=== PATIENT | male | born 1965 | race Caucasian/White ===

== ENCOUNTER 2017-12-02 15:54 | Emergency (ER) | payer OTHER ==
[~2017-12-02] VITALS: Ht 182.9 cm; Wt 134.3 kg
[~2017-12-02 15:54] MED LIST: NORVASC10 MG PO; SIMVASTATIN20 MG PO; SINGULAIR 10 MG10 M1 PO; ZEGERID 20 MG1 EACH PO; ZEGERID 40 MG1 EACH PO; ZINC50 M1 PO
[2017-12-02] MEDS ORDERED: TESTOST (16:06)
[2017-12-02] MEDS ORDERED: [UNRECOGNIZED DRUG - OTHER] (16:06)
[2017-12-02 16:48] LABS: ABSOLUTE EOSINOPHILS 0.2 thou/uL (0.0-0.7); ABSOLUTE LYMPHOCYTES 1.8 thou/uL (0.8-5.3); ABSOLUTE MONOCYTES 0.5 thou/uL (0.0-1.2); ABSOLUTE NEUTROPHILS 4.4 thou/uL (1.6-8.1); BASOPHILS 0.6 %; EOSINOPHILS 2.7 %; HEMATOCRIT 41.6 % (42.0-52.0); HEMOGLOBIN 14.1 gm/dL (14.0-18.0); LYMPHOCYTES 26.2 %; MCH 28.7 pg (26.0-34.0); MCHC 33.8 g/dL (28.0-37.0); MCV 85.1 fL (80.0-100.0); MONOCYTES 7.4 %; MPV 8.6 fl. (7.2-11.1); NUCLEATED RBCS 0 /100WBC; PLATELET COUNT* 210 thou/uL (150-400); POLYS 63.1 %; RBC 4.89 mil/uL (4.50-6.00); RDW-CV 13.2 % (10.5-14.5)
[2017-12-02 16:54] LABS: ANION GAP 9 mmol/L (7-16); BUN 11 mg/dL (7-18); CALCIUM 8.6 mg/dL (8.5-10.1); CHLORIDE 108 mmol/L (98-107); CO2 28 mmol/L (21-32); CREATININE 0.9 mg/dL (0.6-1.3); GLUCOSE 128 mg/dL (70-99); POTASSIUM 3.7 mmol/L (3.5-5.1); SODIUM 145 mmol/L (136-145)
[2017-12-02 17:05] LABS: ALBUMIN 3.7 g/dL (3.4-5.0); ALKALINE PHOSPHATASE 100 U/L (46-116); LIPASE 103 U/L (73-393); NT-PRO BRAIN NAT PEPTIDE 23 pg/mL (<300); SGOT 24 U/L (15-37); SGPT 46 U/L (30-65); TOTAL BILIRUBIN 0.5 mg/dL (<0.1-1.0); TOTAL PROTEIN 7.2 g/dL (6.4-8.2); TROPONIN-I LEVEL <0.06 ng/mL (<0.06)
[2017-12-02 17:21] LABS: APTT 25.4 Seconds (25.0-31.3); PROTIME 9.9 Seconds (9.20-11.50)
[2017-12-02 18:39] VITALS: BP 155/65
--- NOTE | 2017-12-03 16:29 | EKG ---
[place] [address] ELECTROCARDIOGRAM REPORT Name: NISREEN MALAVE Room: [facility]#: [id number] Admission: 12/02/17 Attend Phys: Discharge: 12/02/17 Date of : 65 Report #: [id number] THIS REPORT FOR: //name// [facility] ED Test Date: 2017-12-02 Test Time: 16:07:48 Pat Name: NISREEN MALAVE Department: Room: Gender: M [employer]: Breann WALTER : 1965 Requested By: Amna Castillo Order Number: [id number] MD: Jordin Parisi Measurements Intervals [place] Rate: 88 P: 35 MA: 165 QRS: 4 QRSD: 106 T: 46 QT: 360 QTc: 436 Interpretive Statements Sinus rhythm Low voltage, precordial leads RSR' in V1 or V2, right VCD or RVH Compared to ECG 05/16/2015 23:38:03 Low QRS voltage now present RSR' in V1 or V2 now present Electronically Signed On 12-03-2017 16:29:21 CDT by Jordin Parisi [email or web address] <ELECTRONICALLY SIGNED> By: Jordin Parisi MD, FACC 12/03/17 1629 [id number] [id number] Jordin Parisi MD, [facility] /EPI
== END 2017-12-02 18:41 | disposition home or self-care (01) ==
LOC: M.ERS 15:54
PROVIDERS: Personal Emergency Response Attendant
DX: R20.0 Anesthesia of skin (principal); I10 Essential (primary) hypertension; K21.9 Gastro-esophageal reflux disease without esophagitis